=== PATIENT | female | born 1975 | race Two or more races ===

== ENCOUNTER 2016-10-14 11:16 | Inpatient (IN) | payer MEDICAID ==
[~2016-10-14] VITALS: Ht 154.9 cm; Wt 60.5 kg
[2016-10-14 13:59] LABS: DEFINITIVE VIEW TRANSMISSION; Hematocrit 21.9 % (36.0-46.0); Mean Corpuscular Hemoglobin 14.2 pg (28.0-32.0); Mean Corpuscular Hgb Conc. 28.2 g/dL (32.0-36.0); Mean Corpuscular Volume 50.4 fL (80.0-100.0); Mean Platelet Volume 7.9 fL (7.4-10.4); Platelet Count (auto) 547 10^3/uL (140-450); White Blood Cell 14.7 10^3/uL (4.4-10.8)
[2016-10-14 14:01] LABS: Red Cell Distribution Width 22.3 % (11.6-16.0)
[2016-10-14 14:03] LABS: Hemoglobin 6.2 g/dL (12.2-16.2)
[2016-10-14 14:04] LABS: Albumin 3.3 g/dL (3.4-5.0); Anion Gap 10 (5-15); Aspartate Aminotransferase 6 U/L (15-37); BUN/Creatinine Ratio 29.3; Blood Urea Nitrogen 12 mg/dL (7-18); Calcium 8.4 mg/dL (8.5-10.1); Carbon Dioxide 23 mmol/L (21-32); Chloride 108 mmol/L (98-107); GFR African American 219 mL/min; GFR Non-African American 181 mL/min; Glucose 111 mg/dL (74-106); Magnesium 2.2 mg/dL (1.6-2.6); Metamyelocytes % 0; Myelocytes % 0; Potassium 3.7 mmol/L (3.5-5.1); Promyelocytes % 0; Reactive Lymphocytes 0; Sodium 141 mmol/L (136-145)
[2016-10-14 14:11] LABS: Alkaline Phosphatase 79 U/L (45-117); Bilirubin, Total 0.3 mg/dL (0.2-1.0); Total Protein 7.5 g/dL (6.4-8.2)
[2016-10-14] MEDS ORDERED: traMADol HCL 50 MG TAB PO PRN (14:45)
[2016-10-14] MEDS ORDERED: VANCOMYCIN PER PHARMACY 0 MG IV SCH (14:45)
[2016-10-14] MEDS ORDERED: PANTOPRAZOLE SODIUM 40 MG/10 ML VIAL IV ONE (14:45)
[2016-10-14] MEDS ORDERED: ONDANSETRON HCL 4 MG/2 ML VIAL IV PRN (14:45)
[2016-10-14] MEDS ORDERED: NITROGLYCERIN 0.4 MG SL TAB SL PRN (14:45)
[2016-10-14] MEDS ORDERED: cefTRIAXone 1GM/50ML D5W 50 ML IV ONE (14:45)
[2016-10-14 14:57] LABS: Anisocytosis Marked; Hypochromia Marked; Microcytosis Marked; Ovalocytes FEW; Platelet Estimate Increased; Tear Drop Cells FEW
[2016-10-14] MEDS: predniSONE 5 MG TAB PO SCH (15:41)
[2016-10-14] MEDS ORDERED: FOLI1TAB6 PO (17:23)
[2016-10-14] MEDS ORDERED: NOR5T PO (17:23)
[2016-10-14] MEDS ORDERED: PRE1T PO (17:23)
[2016-10-14] MEDS ORDERED: TRAM50TA2 PO (17:23)
[2016-10-14] MEDS: VANCOMYCIN 1GM/250ML D5W 250 ML IV SCH (17:49)
[2016-10-14 18:20] VITALS: BP 119/67
[2016-10-14 20:00] VITALS: BP 125/83
[2016-10-14 21:30] VITALS: BP 125/83
[2016-10-14] MEDS: MORPHINE SULF INJ 2 MG/ML SYRINGE 1ML IV PRN (22:01)
[2016-10-15] VITALS (22 sets, daily range): BP systolic 103–134; BP diastolic 60–79
[2016-10-15] MEDS: MORPHINE SULF INJ 2 MG/ML SYRINGE 1ML IV PRN ×5 (01:14→21:13)
[2016-10-15] MEDS: VANCOMYCIN 1GM/250ML D5W 250 ML IV SCH ×2 (05:38→16:34)
[2016-10-15] MEDS: predniSONE 5 MG TAB PO SCH (08:26)
[2016-10-15] MEDS: cefTRIAXone 1GM/50ML D5W 50 ML IV SCH (08:26)
[2016-10-15 08:44] LABS: Urine RBC None Seen /hpf (0 - 4)
[2016-10-15 10:00] LABS: Urine Bilirubin Negative (Negative); Urine Blood Trace /uL (Negative); Urine Color Light Yellow (Yellow); Urine Glucose NEG (Normal); Urine Ketone Negative (Negative); Urine Nitrite Negative (Negative); Urine Urobilinogen Normal (Negative); Urine pH 6.5 (5.0-8.0)
[2016-10-15] MEDS ORDERED: PANTOPRAZOLE SODIUM 40 MG/10 ML VIAL IV SCH (10:00)
[2016-10-15 10:02] LABS: Urine Squamous Epithelial Cell Few /hpf (<5)
[2016-10-15 13:09] LABS: DEFINITIVE VIEW TRANSMISSION; Hematocrit 31.9 % (36.0-46.0); Hemoglobin 9.4 g/dL (12.2-16.2); Mean Corpuscular Hemoglobin 17.9 pg (28.0-32.0); Mean Corpuscular Hgb Conc. 29.6 g/dL (32.0-36.0); Mean Corpuscular Volume 60.6 fL (80.0-100.0); Mean Platelet Volume 8.1 fL (7.4-10.4); Platelet Count (auto) 453 10^3/uL (140-450); SUSPECT VIEW TRANSMISSION; White Blood Cell 12.7 10^3/uL (4.4-10.8)
[2016-10-15 13:17] LABS: Red Cell Distribution Width 37.3 % (11.6-16.0)
[2016-10-15 13:18] LABS: Metamyelocytes % 0; Myelocytes % 0; Promyelocytes % 0; Reactive Lymphocytes 0
[2016-10-15 13:23] LABS: INR 1.11 (0.9-1.15); Partial Thromboplastin Time 19.4 sec (22.64-33.71); Prothrombin Time 11.4 sec (9.37-12.3)
[2016-10-15 13:45] LABS: BUN/Creatinine Ratio 23.3; Calcium 8.1 mg/dL (8.5-10.1); Potassium 3.9 mmol/L (3.5-5.1)
[2016-10-15 14:42] LABS: Anisocytosis Marked; Hypochromia Marked; Microcytosis Marked
[2016-10-15] MEDS ORDERED: GOLYTELY 4L KIT PO ONE (14:45)
[2016-10-15 14:52] LABS: Burr Cells FEW; Ovalocytes FEW; Platelet Estimate Increased; Tear Drop Cells FEW
[2016-10-16] MEDS: MORPHINE SULF INJ 2 MG/ML SYRINGE 1ML IV PRN ×4 (04:21→20:58)
[2016-10-16 04:30] LABS: Basophils # (auto) 0 uL; Basophils % (auto) 0.2 % (0.0-2.0); DEFINITIVE VIEW TRANSMISSION; Eosinophils # (auto) 0.1 uL; Eosinophils % (auto) 1.6 % (0.0-7.0); Hematocrit 28.5 % (36.0-46.0); Hemoglobin 8.5 g/dL (12.2-16.2); Lymphocytes # (auto) 1.8 uL; Lymphocytes % (auto) 22.3 % (10.0-50.0); Mean Corpuscular Hemoglobin 17.9 pg (28.0-32.0); Mean Corpuscular Hgb Conc. 29.8 g/dL (32.0-36.0); Mean Platelet Volume 7.6 fL (7.4-10.4); Monocytes # (auto) 0.6 uL; Neutrophils # (auto) 5.7 uL; Neutrophils % (auto) 68.9 % (37.0-80.0); Platelet Count (auto) 390 10^3/uL (140-450); SUSPECT VIEW TRANSMISSION; White Blood Cell 8.2 10^3/uL (4.4-10.8)
[2016-10-16 04:43] LABS: Red Cell Distribution Width 36.4 % (11.6-16.0)
[2016-10-16 04:52] LABS: BUN/Creatinine Ratio 26.7; Calcium 7.6 mg/dL (8.5-10.1); Potassium 3.3 mmol/L (3.5-5.1)
[2016-10-16 05:06] LABS: Anisocytosis Marked; Hypersegmented Neutrophils Present; Hypochromia Marked; Microcytosis Marked; Ovalocytes MODERATE; Spherocytes FEW; Tear Drop Cells FEW
[2016-10-16 05:07] LABS: Platelet Estimate Adequate
[2016-10-16 05:14] VITALS: BP 123/75
[2016-10-16] MEDS: VANCOMYCIN 1GM/250ML D5W 250 ML IV SCH (05:20)
[2016-10-16 09:06] VITALS: BP 122/69
[2016-10-16] MEDS: predniSONE 5 MG TAB PO SCH ×2 (10:00→16:47)
[2016-10-16] MEDS: cefTRIAXone 1GM/50ML D5W 50 ML IV SCH (10:47)
[2016-10-16] MEDS ORDERED: POTASSIUM CHL 20 Meq TABLET PO ONE (11:15)
[2016-10-16] MEDS ORDERED: PANTOPRAZOLE SODIUM 40 MG/10 ML VIAL IV ONE (11:15)
[2016-10-16] MEDS ORDERED: PROPOFOL 10 MG/ML 20 ML IV ONE (12:15)
[2016-10-16 13:00] VITALS: BP 111/72
[2016-10-16] MEDS: VANCOMYCIN 1,250 MG in D5W 5% 250 ML IV SCH (16:49)
[2016-10-16] MEDS ORDERED: POTASSIUM CHL 10% (20 MEQ/15ML) ORAL SOLN PO ONE (17:00)
[2016-10-16 17:04] VITALS: BP 132/84
[2016-10-16 20:20] VITALS: BP 128/75
[2016-10-16 21:30] VITALS: BP 128/75
[2016-10-16] MEDS: PANTOPRAZOLE SODIUM 40 MG/10 ML VIAL IV SCH (21:52)
[2016-10-17] MEDS: MORPHINE SULF INJ 2 MG/ML SYRINGE 1ML IV PRN ×2 (02:35→09:52)
[2016-10-17] MEDS: VANCOMYCIN 1,250 MG in D5W 5% 250 ML IV SCH (04:41)
[2016-10-17 05:00] VITALS: BP 115/68
[2016-10-17 05:39] LABS: Hematocrit 30.3 % (36.0-46.0)
[2016-10-17 08:00] VITALS: BP 97/90
[2016-10-17 09:20] VITALS: BP 97/60
[2016-10-17] MEDS: cefTRIAXone 1GM/50ML D5W 50 ML IV SCH (09:30)
[2016-10-17] MEDS: PANTOPRAZOLE SODIUM 40 MG/10 ML VIAL IV SCH (09:51)
[2016-10-17] MEDS: predniSONE 5 MG TAB PO SCH (09:53)
[2016-10-17] MEDS ORDERED: PANTOPRAZOLE SODIUM 40 MG/10 ML VIAL IV SCH (10:00)
[2016-10-17] MEDS ORDERED: CEPH-37 PO (10:52)
[2016-10-17] MEDS ORDERED: PANT40TA2 PO (10:52)
[2016-10-17] MEDS ORDERED: SACC250C PO (10:52)
[2016-10-17] MEDS ORDERED: FER325T PO (10:52)
[2016-10-17 11:34] VITALS: BP 97/60
[2016-10-17 13:22] VITALS: BP 112/64
== END 2016-10-17 14:00 | disposition home health service (06) | DRG 663 ==
LOC: EDUNIT# 11:16 → ER 11:27 → TELE 11:28 → TELE-E-ADS 16:53 → TELE-WESTW 18:21
PROVIDERS: ADMIT Internal Medicine; ATTEND Internal Medicine
PROC: 30233N1 Transfusion of Nonautologous Red Blood Cells into Peripheral Vein, Percutaneous Approach (ICD-10-PCS; principal; 2016-10-14)
PROC: 0DJ08ZZ Inspection of Upper Intestinal Tract, Via Natural or Artificial Opening Endoscopic (ICD-10-PCS; 2016-10-16)
DX: D50.9 Iron deficiency anemia, unspecified (principal); L97.419 Non-pressure chronic ulcer of right heel and midfoot with unspecified severity; K92.2 Gastrointestinal hemorrhage, unspecified; M06.9 Rheumatoid arthritis, unspecified; F41.9 Anxiety disorder, unspecified; E87.6 Hypokalemia; Z79.52 Long term (current) use of systemic steroids; K44.9 Diaphragmatic hernia without obstruction or gangrene; Z87.442 Personal history of urinary calculi; M19.90 Unspecified osteoarthritis, unspecified site; Z87.01 Personal history of pneumonia (recurrent); Z96.653 Presence of artificial knee joint, bilateral; Z96.643 Presence of artificial hip joint, bilateral; Z71.89 Other specified counseling; Z53.21 Procedure and treatment not carried out due to patient leaving prior to being seen by health care provider
CPT/HCPCS: 36415; 36430; 43235; 71020; 80048; 80053; 80202; 81001; 83540; 83550; 83735; 84132; 84484; 84702; 85007; 85014; 85018; 85025; 85027; 85379; 85610; 85730; 86850; 86870; 86900; 86901; 86922; 87077; 87186; 87205; 93005; 94761; 96374; C9113; J0696; J2704; J7060

== ENCOUNTER 2019-06-16 20:03 | Emergency (ER) | payer MEDICAID ==
[~2019-06-16] VITALS: Ht 154.9 cm; Wt 74.8 kg
[~2019-06-16 20:03] MED LIST: CEPH-37 PO; FER325T PO; FOLI1TAB6 PO; HYDR-4833 PO; PANT40TA2 PO; PRE1T PO; SACC250C PO; TRAM50TA2 PO
[2019-06-16 21:09] LABS: Basophils # (auto) 0 uL; Eosinophils # (auto) 0 uL; Eosinophils % (auto) 0.1 % (0.0-7.0); Monocytes # (auto) 0.6 uL; Monocytes % (auto) 5.1 % (0.0-12.0); Neutrophils # (auto) 10.7 uL
[2019-06-16 21:11] LABS: Basophils % (auto) 0.4 % (0.0-2.0); Hematocrit 24.6 % (36.0-46.0); Lymphocytes # (auto) 0.6 uL; Lymphocytes % (auto) 4.8 % (10.0-50.0); Mean Corpuscular Hemoglobin 14.6 pg (28.0-32.0); Mean Corpuscular Hgb Conc. 27.2 g/dL (32.0-36.0); Mean Corpuscular Volume 53.8 fL (80.0-100.0); Neutrophils % (auto) 89.6 % (37.0-80.0); Nucleated Red Blood Cells % 0.1 %; Platelet Count (auto) 476 10^3/uL (140-450); Red Blood Cells 4.57 10^6/uL (4.0-5.20)
[2019-06-16 21:27] LABS: Alanine Aminotransferase 9 U/L (13-56); Albumin 3.8 g/dL (3.4-5.0); Anion Gap 7 (5-15); Aspartate Aminotransferase 10 U/L (15-37); BUN/Creatinine Ratio 17.1; Blood Urea Nitrogen 6 mg/dL (7-18); Calcium 8.4 mg/dL (8.5-10.1); Carbon Dioxide 25 mmol/L (21-32); Chloride 108 mmol/L (98-107); GFR African American 259 mL/min; GFR Non-African American 214 mL/min; Glucose 95 mg/dL (74-106); Potassium 3.5 mmol/L (3.5-5.1); Sodium 140 mmol/L (136-145)
[2019-06-16 21:32] LABS: Alkaline Phosphatase 89 U/L (45-117); Bilirubin, Total 0.4 mg/dL (0.2-1.0); Total Protein 7.5 g/dL (6.4-8.2)
[2019-06-16 21:36] LABS: Red Cell Distribution Width 21.1 % (11.8-14.3)
[2019-06-16 21:40] LABS: Hemoglobin 6.7 g/dL (12.2-16.2)
[2019-06-16 21:50] LABS: Urine Bacteria NONE SEEN /hpf (None Seen); Urine Blood Negative /uL (Negative); Urine Specific Gravity 1.008 (1.001-1.035); Urine WBC 6 /hpf (0 - 5)
[2019-06-17] MEDS ORDERED: LEVOFLOXACIN 750MG 150 ML IV ONE (00:15)
[2019-06-17] MEDS ORDERED: MORPHINE SULFATE 4 MG/ML SYR/VIAL IV ONE (04:15)
[2019-06-17] MEDS ORDERED: ONDANSETRON HCL 4 MG/2 ML VIAL IV ONE (04:15)
[2019-06-17 05:00] VITALS: BP 148/78
[2019-06-17 05:23] VITALS: BP 148/75
[2019-06-17 07:28] VITALS: BP 152/74
[2019-06-17 08:30] VITALS: BP 140/80
[2019-06-17 08:52] VITALS: BP 142/79
[2019-06-17 11:09] VITALS: BP 131/74
== END 2019-06-17 13:19 | disposition home or self-care (01) ==
LOC: ER 20:03
DX: J20.9 Acute bronchitis, unspecified (principal); D64.9 Anemia, unspecified; Z87.442 Personal history of urinary calculi
CPT/HCPCS: 36415; 71045; 80053; 81001; 83880; 84484; 85025; 86850; 86870; 86900; 86901; 86902; 96365; 96375; 99284; J1956; J2270; J2405; P9016; 86922

== ENCOUNTER 2019-09-03 18:32 | Emergency (ER) | payer MEDICAID ==
[~2019-09-03] VITALS: Ht 134.6 cm; Wt 71.7 kg
[2019-09-03 19:01] VITALS: BP 152/96
[2019-09-04] MEDS ORDERED: DexAMETHasone SOD PHOS 10MG/1ML VIAL INJ IM ONE (00:15)
[2019-09-04] MEDS ORDERED: ACETAMINOPHEN/CODEINE#3 (300/30mg) TAB PO ONE (00:15)
== END 2019-09-04 01:27 | disposition home or self-care (01) ==
LOC: ER 18:32
DX: J06.9 Acute upper respiratory infection, unspecified (principal)
CPT/HCPCS: 96372; 99283; J1100

== ENCOUNTER 2020-03-11 21:30 | Inpatient (IN) | payer MEDICAID ==
[~2020-03-11] VITALS: Ht 147.3 cm; Wt 47.8 kg
[2020-03-11 23:51] LABS: Potassium 4.6 mmol/L (3.5-5.1)
[2020-03-11 23:55] LABS: Basophils # (auto) 0 10 ^3/uL (0-0.2); Basophils % (auto) 0.1 % (0.0-2.0); Eosinophils # (auto) 0 10 ^3/uL (0-0.8)
[2020-03-11 23:57] LABS: Hematocrit 38.6 % (36.0-46.0); Hemoglobin 11.8 g/dL (12.2-16.2); Lymphocytes # (auto) 0.8 10 ^3/uL (0.4-5.4); Mean Corpuscular Hemoglobin 22.7 pg (28.0-32.0); Mean Corpuscular Hgb Conc. 30.6 g/dL (32.0-36.0); Mean Corpuscular Volume 74.1 fL (80.0-100.0); Monocytes # (auto) 0.7 10 ^3/uL (0-1.3); Monocytes % (auto) 5.7 % (0.0-12.0); Neutrophils # (auto) 11.5 10 ^3/uL (1.6-8.6); Neutrophils % (auto) 88.2 % (37.0-80.0); Nucleated Red Blood Cells % 0.2 %; Platelet Count (auto) 358 10^3/uL (140-450); Red Blood Cells 5.21 10^6/uL (4.0-5.20)
[2020-03-11 23:58] LABS: BUN/Creatinine Ratio 14.3; Bilirubin, Total 0.3 mg/dL (0.2-1.0); Total Protein 7.6 g/dL (6.4-8.2)
[2020-03-12 00:03] LABS: Red Cell Distribution Width 20.6 % (11.8-14.3)
[2020-03-12] MEDS ORDERED: IOHEXOL 300 MG/ML 100ML BOTTLE IJ ONE (00:36)
[2020-03-12] MEDS ORDERED: SOD CHL 0.45% 1,000 ML IV ONE (00:45)
[2020-03-12] MEDS ORDERED: cefTRIAXone 1GM/50ML D5W 50 ML IV ONE (00:45)
[2020-03-12 02:12] LABS: Urine Bacteria NONE SEEN /hpf (None Seen); Urine Blood Negative /uL (Negative); Urine Mucus FEW (None Seen); Urine WBC 4 /hpf (0 - 5)
[2020-03-12 02:15] LABS: Amylase 28 U/L (25-115); Lipase 142 U/L (73-393)
[2020-03-12 02:16] LABS: Basophils # (auto) 0 10 ^3/uL (0-0.2); Basophils % (auto) 0.3 % (0.0-2.0); Eosinophils # (auto) 0 10 ^3/uL (0-0.8); Monocytes # (auto) 0.6 10 ^3/uL (0-1.3); Monocytes % (auto) 4.9 % (0.0-12.0)
[2020-03-12 02:17] LABS: Alcohol, Urine < 3.0 mg/dL (0-10); Amphetamine Screen, Urine NEGATIVE (NEGATIVE); Barbiturate Scree,Urine NEGATIVE (NEGATIVE); Benzodiazephine Screen, Urine NEGATIVE (NEGATIVE); Cannabinoid Screen, Urine NEGATIVE (NEGATIVE); Cocaine Screen, Urine NEGATIVE (NEGATIVE); Opiate Scree,Urine NEGATIVE (NEGATIVE); Phencyclidine Screen, Urine NEGATIVE (NEGATIVE)
[2020-03-12 02:17] LABS: Hematocrit 37.5 % (36.0-46.0); Hemoglobin 11.6 g/dL (12.2-16.2); Lymphocytes # (auto) 0.9 10 ^3/uL (0.4-5.4); Lymphocytes % (auto) 7.4 % (10.0-50.0); Mean Corpuscular Volume 74.2 fL (80.0-100.0); Neutrophils # (auto) 11.1 10 ^3/uL (1.6-8.6); Neutrophils % (auto) 87.4 % (37.0-80.0); Platelet Count (auto) 339 10^3/uL (140-450); Red Blood Cells 5.05 10^6/uL (4.0-5.20); White Blood Cell 12.7 10^3/uL (4.4-10.8)
[2020-03-12 02:18] LABS: Urine Specific Gravity > 1.050 (1.001-1.035)
[2020-03-12 02:18] LABS: Red Cell Distribution Width 20.5 % (11.8-14.3)
[2020-03-12 02:38] LABS: Alanine Aminotransferase 25 U/L (13-56); Albumin 2.9 g/dL (3.4-5.0); Anion Gap 8 (5-15); Aspartate Aminotransferase 21 U/L (15-37); BUN/Creatinine Ratio 15.4; Blood Urea Nitrogen 6 mg/dL (7-18); Calcium 7.8 mg/dL (8.5-10.1); Carbon Dioxide 23 mmol/L (21-32); Chloride 104 mmol/L (98-107); GFR African American 228 mL/min; GFR Non-African American 188 mL/min; Glucose 92 mg/dL (74-106); Potassium 3.6 mmol/L (3.5-5.1); Sodium 135 mmol/L (136-145)
[2020-03-12 02:41] LABS: Alkaline Phosphatase 116 U/L (45-117); Bilirubin, Total 0.4 mg/dL (0.2-1.0); Total Protein 7.6 g/dL (6.4-8.2)
[2020-03-12] MEDS ORDERED: AZITHROMYCIN 500MG/ 250ML 250 ML IV ONE (03:00)
[2020-03-12] MEDS: traMADol HCL 50 MG TAB PO ONE ×2 (04:19→04:27)
[2020-03-12] MEDS ORDERED: TEMAZEPAM 15 MG CAP PO ONE (05:15)
[2020-03-12] MEDS ORDERED: PIPERACILLIN-TAZOB 3.375GM 100 ML IV ONE (09:45)
[2020-03-12] MEDS ORDERED: NITROGLYCERIN 0.4 MG SL TAB SL PRN (09:45)
[2020-03-12] MEDS ORDERED: ACETAMINOPHEN 500 MG TAB PO PRN ×2 (09:45→10:00)
[2020-03-12] MEDS ORDERED: VANCOMYCIN PER PHARMACY 0 MG IV SCH (09:45)
[2020-03-12] MEDS ORDERED: MORPHINE SULF INJ 2 MG/ML SYRINGE 1ML IV PRN (09:45)
[2020-03-12] MEDS ORDERED: VANCOMYCIN 1GM/250ML 250 ML IV ONE (09:45)
[2020-03-12] MEDS ORDERED: SODIUM CHLORIDE 0.9% 1,000 ML IV SCH (09:49)
[2020-03-12] MEDS ORDERED: VANCOMYCIN 1GM/250ML 250 ML IV SCH ×2 (10:00→11:00)
[2020-03-12] MEDS ORDERED: DexAMETHasone SOD PHOS 4 MG/1ML SDV INJ IV SCH (10:00)
[2020-03-12] MEDS ORDERED: LACTULOSE 20Gm/30ML SOLN PO PRN (10:00)
[2020-03-12] MEDS: FERROUS SULFATE 325 MG TAB PO SCH (10:37)
[2020-03-12] MEDS: ZINC SULFATE 220mg CAP or TAB PO SCH (10:37)
[2020-03-12] MEDS: FOLIC ACID 1 MG TAB PO SCH ×2 (10:37→11:16)
[2020-03-12] MEDS: CHOLECALCIFEROL (VITD3) 1,000UNIT=25mCg TAB PO SCH (10:37)
[2020-03-12] MEDS: DOXYCYCLINE 100 MG TAB/CAP PO SCH ×2 (10:38→22:04)
[2020-03-12] MEDS: ASCORBIC ACID 1,000 MG TAB PO SCH ×2 (10:38→11:16)
[2020-03-12] MEDS: ENOXAPARIN SOD 60 MG/0.6 ML SYRINGE SC SCH ×2 (10:38→22:00)
[2020-03-12] MEDS: SODIUM CHLORIDE 0.9% 1,000 ML IV SCH (11:18)
[2020-03-12] MEDS: PROMETHAZINE HCL 25 MG/ML 1ML IV PRN ×2 (11:54→17:14)
[2020-03-12] MEDS: PIPERACILLIN-TAZOB 3.375GM 100 ML IV SCH ×2 (13:18→18:30)
[2020-03-12] MEDS ORDERED: ALBUTEROL SULF HFA 90MCG INH 200DOSE IN SCH (14:00)
--- NOTE | 2020-03-12 16:00 | NUR ---
WOUND CARE NOTE: Wound care in to see patient per wound care request regarding Rt lower leg wounds that are noted present on admission. Patient is 44 years old female with admitting diagnosis of Pna, Covid, Rt Leg Cellulitis, Non healing Wound. Patient is resting in ED Rm. #1, on isolation, CoVid positive. Patient is awake, alert and oriented. Patient is in no stated pain at this time. Patient is wheel chair bound "for many years" but she's able to assist in turning and repositioning. Her Fareed score is 15. Noted patient's Rt lower extremity has multi open full thickness ulceration. To her Rt anterior medial foot down to her Rt lateral ankle is 9x13 open ulceration and to her Rt anterolateral lower leg is 6x5cm open full thickness ulcer with no measurable depth. Wound bed is pale pink with yellow adherent slough, lanre wound is bright red with moderate serous drainage noted on old dressing; no odor noted. Patient reported that she has had the RLE wounds "for three weeks". She added that she goes to [facility] [place] for wound treatment and it is her son who helps her in wound dressing. Cleansed patient's RLE wounds with NS, took specimen for wound culture and bedside nurse sent it to lab for processing. Applied Xeroform dressing and covered with large abd pad, wrapped with Kerlix and secured with tape. Patient's Rt distal forearm has open partial thickness skin tear measuring 0.5x1.8cm. Cleansed skin tear with wound cleanser,patted dry with gauze, applied Thera honey and covered with small Opti foam gentle dressing. Patient turned to her Rt side to examine sacral and back, no pressure injury noted. Photograph of wounds are taken for reference. Patient tolerated, repositioned patient for comfort. RECOMMENDATION: Nursing to continue with Daily/PRN dressing change to RLE wounds, Q#days/PRN dressing change to Rt forearm skin tear per MD order, Dietary consult, surgical consult, frequent turning and repositioning schedule as condition permits, redistribute pressure points with pillows, affected extremity on pillows, continue monitoring by wound care while patient is hospitalized. Addendum: 03/12/20 at 1713 by Gwendolyn Bridges RN Amended: Links added.
[2020-03-12] MEDS: MORPHINE SULF INJ 2 MG/ML SYRINGE 1ML IV PRN ×2 (17:13→22:04)
[2020-03-12 21:30] VITALS: BP 131/75
--- NOTE | 2020-03-12 21:30 | NUR ---
Telemetry admit from [facility] admitted to Telemetry unit after SBAR received. Patient oriented to LALA RUTHERFORD, RN primary RN, MST unit, room 245, bed B, and unit policies regarding patient care and visiting hours. Patient now on continuous telemetry monitoring, tele box #20 and telemetry reading on arrival to unit is normal SR in the 80s. Patient weighed by bed scale and encouraged to call if they need something. All questions and concerns addressed, patient verbalized understanding. Note: PATIENT ON ROOM AIR WITH EVEN AND UNLABORED RESPIRATIONS, NO S/S OF DISTRESS SOB OR PAIN. BED IN LOWEST LOCKED POSITION, SIDE RAILS UP X2, AND CALL LIGHT WITHIN REACH.
[2020-03-12] MEDS: VANCOMYCIN 1GM/250ML 250 ML IV SCH (22:04)
[2020-03-12] MEDS: TEMAZEPAM 15 MG CAP PO PRN (22:40)
[2020-03-13] MEDS: PIPERACILLIN-TAZOB 3.375GM 100 ML IV SCH ×4 (00:46→19:59)
[2020-03-13] MEDS: SODIUM CHLORIDE 0.9% 1,000 ML IV SCH (00:46)
[2020-03-13] MEDS: MORPHINE SULF INJ 2 MG/ML SYRINGE 1ML IV PRN ×4 (02:35→22:14)
[2020-03-13 05:00] VITALS: BP 135/71
[2020-03-13 07:19] LABS: Basophils # (auto) 0 10 ^3/uL (0-0.2); Eosinophils # (auto) 0 10 ^3/uL (0-0.8); Eosinophils % (auto) 0.1 % (0.0-7.0); Hemoglobin 10.3 g/dL (12.2-16.2); Lymphocytes # (auto) 0.7 10 ^3/uL (0.4-5.4)
[2020-03-13] MEDS: VANCOMYCIN 1GM/250ML 250 ML IV SCH ×2 (07:20→18:50)
[2020-03-13 07:21] LABS: Hematocrit 32.9 % (36.0-46.0); Lymphocytes % (auto) 7.3 % (10.0-50.0); Mean Corpuscular Hemoglobin 23.2 pg (28.0-32.0); Mean Corpuscular Hgb Conc. 31.4 g/dL (32.0-36.0); Monocytes # (auto) 0.6 10 ^3/uL (0-1.3); Monocytes % (auto) 7.1 % (0.0-12.0); Neutrophils # (auto) 7.8 10 ^3/uL (1.6-8.6); Neutrophils % (auto) 85.5 % (37.0-80.0); Platelet Count (auto) 273 10^3/uL (140-450); Red Blood Cells 4.45 10^6/uL (4.0-5.20); Red Cell Distribution Width 20.3 % (11.8-14.3); White Blood Cell 9.1 10^3/uL (4.4-10.8)
[2020-03-13 07:37] LABS: Potassium 3.2 mmol/L (3.5-5.1)
[2020-03-13 07:45] LABS: Albumin 2.3 g/dL (3.4-5.0); BUN/Creatinine Ratio 23.5; Bilirubin, Total 0.3 mg/dL (0.2-1.0); Calcium 8.2 mg/dL (8.5-10.1); Total Protein 6.3 g/dL (6.4-8.2)
[2020-03-13 09:00] VITALS: BP 119/65
[2020-03-13] MEDS: CHOLECALCIFEROL (VITD3) 1,000UNIT=25mCg TAB PO SCH (10:00)
[2020-03-13] MEDS: FERROUS SULFATE 325 MG TAB PO SCH (10:30)
[2020-03-13] MEDS: ZINC SULFATE 220mg CAP or TAB PO SCH (10:30)
[2020-03-13] MEDS: ASCORBIC ACID 1,000 MG TAB PO SCH (10:31)
[2020-03-13] MEDS: DOXYCYCLINE 100 MG TAB/CAP PO SCH ×2 (10:31→22:13)
[2020-03-13] MEDS: FOLIC ACID 1 MG TAB PO SCH (10:31)
[2020-03-13] MEDS: ENOXAPARIN SOD 60 MG/0.6 ML SYRINGE SC SCH (10:32)
[2020-03-13] MEDS: PROMETHAZINE HCL 25 MG/ML 1ML IV PRN ×3 (10:54→22:14)
[2020-03-13] MEDS: HYDROcodone-ACET 5/325MG TAB PO PRN ×2 (10:55→17:41)
[2020-03-13] MEDS: DexAMETHasone SOD PHOS 10MG/1ML VIAL INJ IV SCH (10:56)
[2020-03-13 13:00] VITALS: BP 113/61
[2020-03-13] MEDS ORDERED: FUROSEMIDE 40 MG/4 ML VIAL IV ONE (14:30)
[2020-03-13] MEDS ORDERED: POTASSIUM EFFERVESENT TAB 25 MEQ PO ONE (14:30)
--- NOTE | 2020-03-13 14:32 | NUR ---
RE: PRN pain medication administration PRN pain medication administered to patient for patient's primary RNYenifer.
[2020-03-13] MEDS ORDERED: ENOXAPARIN SOD 80 MG/0.8ML SYRINGE SC ONE (14:45)
--- NOTE | 2020-03-13 15:08 | NUR ---
Nutrition Assessment/consult Notes please see attached link for complete assessment [employer] needs ABW 57 [id number] kcals (23-25 kcal/kgABW), Est Protein needs: 57-68 gms/day (1.0-1.2 gm/kgABW r/t wounds). Will continue to monitor and reassess prn. Addendum: 03/13/20 at [address] Amended: Links added.
[2020-03-13 17:45] VITALS: BP 104/71
--- NOTE | 2020-03-13 19:10 | NUR ---
Opening Shift Note Assumed care of patient, awake, and alert oriented x4, on room air with even and unlabored respirations, no S/S of distress/SOB or pain. Patient able to turn independently, bed in lowest locked position, side rails up x2, and call light within reach. Instructed on POC and to call for assist PRN, will continue to monitor for changes Q1hr and PRN.
[2020-03-13 22:00] VITALS: BP 117/69
[2020-03-13] MEDS: ENOXAPARIN SOD 80 MG/0.8ML SYRINGE SC SCH (22:13)
[2020-03-14] MEDS: TEMAZEPAM 15 MG CAP PO PRN ×2 (00:34→22:59)
[2020-03-14] MEDS: HYDROcodone-ACET 5/325MG TAB PO PRN ×2 (01:46→14:23)
--- NOTE | 2020-03-14 02:45 | NUR ---
IV removal IV DC'd with clean sterile technique, catheter fully intact. Pressure dressing applied to site. Patient tolerated well.
--- NOTE | 2020-03-14 02:54 | NUR ---
IV insertion IV access obtained, via clean sterile technique by inserting 22 gauge catheter at the right forearm after 1 attempt(s). IV secured properly. No trauma to site. Patient tolerated well.
[2020-03-14] MEDS: VANCOMYCIN 1GM/250ML 250 ML IV SCH ×3 (03:05→22:59)
[2020-03-14] MEDS: PIPERACILLIN-TAZOB 3.375GM 100 ML IV SCH ×4 (03:05→19:57)
[2020-03-14] MEDS: MORPHINE SULF INJ 2 MG/ML SYRINGE 1ML IV PRN ×4 (03:06→21:54)
[2020-03-14 06:00] VITALS: BP 109/58
--- NOTE | 2020-03-14 07:00 | NUR ---
Opening Shift Note Assumed care of patient, awake and alert. No S/S of distress/SOB or pain. Instructed on POC and to call for assist PRN, will continue to monitor for changes Q1hr and PRN.
[2020-03-14 09:00] VITALS: BP 140/77
[2020-03-14] MEDS: FUROSEMIDE 40 MG/4 ML VIAL IV SCH (09:00)
[2020-03-14] MEDS: PROMETHAZINE HCL 25 MG/ML 1ML IV PRN ×3 (09:00→21:55)
[2020-03-14] MEDS: DexAMETHasone SOD PHOS 10MG/1ML VIAL INJ IV SCH (09:00)
[2020-03-14] MEDS: FERROUS SULFATE 325 MG TAB PO SCH (09:00)
[2020-03-14] MEDS: POTASSIUM EFFERVESENT TAB 25 MEQ PO SCH (09:01)
[2020-03-14] MEDS: ASCORBIC ACID 1,000 MG TAB PO SCH (09:01)
[2020-03-14] MEDS: DOXYCYCLINE 100 MG TAB/CAP PO SCH ×2 (09:01→21:53)
[2020-03-14] MEDS: ZINC SULFATE 220mg CAP or TAB PO SCH (09:02)
[2020-03-14] MEDS: ENOXAPARIN SOD 80 MG/0.8ML SYRINGE SC SCH ×3 (09:02→22:59)
[2020-03-14] MEDS: FOLIC ACID 1 MG TAB PO SCH (09:02)
[2020-03-14] MEDS: CHOLECALCIFEROL (VITD3) 1,000UNIT=25mCg TAB PO SCH (09:02)
[2020-03-14 13:00] VITALS: BP 122/68
--- NOTE | 2020-03-14 14:45 | NUR ---
O2 TITRATION PLACED PATIENT ON 2 L N/C PATIENTS O2 SATURATION IS 94% NO S/S OF DISTRESS. Addendum: 03/14/20 at 1500 by Caitlin Castle RN WRONG PATIENT
[2020-03-14 17:00] VITALS: BP 118/69
--- NOTE | 2020-03-14 17:36 | NUR ---
Dressing change Patient refusing dressing change until we can get an order to use her gel that has lidocaine. Will ask for order in the am. Addendum: 03/14/20 at 1742 by Caitlin Castle RN Dressing is clean dry and intact, no drainage.
--- NOTE | 2020-03-14 19:30 | NUR ---
Opening Shift Note Assumed care of patient. Patient is awake, alert, and oriented x 4. No S/S of respiratory distress/SOB noted or reported. Patient complaints on ashley in R. leg 5 out of 10. Will be addressed per DR's order. Respirations are regular and non-labored. Tele box connected to the monitor tech. Leads are placed correctly. [employer]ina is patent. Bed is in lowest locked position with bed rails up x 2, call light is within reach. POC discussed with the patient. Instructed to call for assistance PRN. Will continue to monitor Q1H or/and PRN.
[2020-03-14 20:00] VITALS: BP 101/62
[2020-03-14 22:00] VITALS: BP 101/62
[2020-03-15] MEDS: PIPERACILLIN-TAZOB 3.375GM 100 ML IV SCH ×4 (02:01→20:27)
[2020-03-15] MEDS: MORPHINE SULF INJ 2 MG/ML SYRINGE 1ML IV PRN ×4 (03:36→22:09)
[2020-03-15] MEDS: PROMETHAZINE HCL 25 MG/ML 1ML IV PRN ×2 (03:36→09:15)
[2020-03-15 05:00] VITALS: BP 113/58
[2020-03-15 07:02] LABS: Basophils # (auto) 0 10 ^3/uL (0-0.2); Eosinophils # (auto) 0 10 ^3/uL (0-0.8); Eosinophils % (auto) 0.1 % (0.0-7.0); Lymphocytes # (auto) 0.8 10 ^3/uL (0.4-5.4); Monocytes # (auto) 0.8 10 ^3/uL (0-1.3); Neutrophils % (auto) 82.9 % (37.0-80.0)
[2020-03-15 07:04] LABS: Hemoglobin 10.2 g/dL (12.2-16.2); Lymphocytes % (auto) 8.7 % (10.0-50.0); Mean Corpuscular Hemoglobin 22.9 pg (28.0-32.0); Mean Corpuscular Hgb Conc. 30.9 g/dL (32.0-36.0); Monocytes % (auto) 8.3 % (0.0-12.0); Neutrophils # (auto) 7.7 10 ^3/uL (1.6-8.6); Platelet Count (auto) 286 10^3/uL (140-450); Red Blood Cells 4.46 10^6/uL (4.0-5.20); White Blood Cell 9.3 10^3/uL (4.4-10.8)
[2020-03-15 07:16] LABS: Red Cell Distribution Width 20.6 % (11.8-14.3)
--- NOTE | 2020-03-15 07:22 | NUR ---
Respiratory note: POX CHECK, ASSESSED PT NO DISTRESS NOTED. HR 67, RR 16, SPO2 94% ON ROOM AIR. BS ARE CLEAR AND DIMINISHED.
[2020-03-15 07:28] LABS: Potassium 3.4 mmol/L (3.5-5.1)
[2020-03-15 07:30] LABS: BUN/Creatinine Ratio 22.5
[2020-03-15] MEDS: VANCOMYCIN 1GM/250ML 250 ML IV SCH ×2 (08:45→19:05)
[2020-03-15] MEDS: FUROSEMIDE 40 MG/4 ML VIAL IV SCH (08:48)
[2020-03-15] MEDS: DOXYCYCLINE 100 MG TAB/CAP PO SCH ×2 (08:48→22:08)
[2020-03-15] MEDS: ZINC SULFATE 220mg CAP or TAB PO SCH (08:48)
[2020-03-15] MEDS: FOLIC ACID 1 MG TAB PO SCH (08:48)
[2020-03-15] MEDS: FERROUS SULFATE 325 MG TAB PO SCH (08:48)
[2020-03-15] MEDS: ASCORBIC ACID 1,000 MG TAB PO SCH (08:48)
[2020-03-15] MEDS: DexAMETHasone SOD PHOS 10MG/1ML VIAL INJ IV SCH (08:48)
[2020-03-15] MEDS: CHOLECALCIFEROL (VITD3) 1,000UNIT=25mCg TAB PO SCH (08:49)
[2020-03-15] MEDS: POTASSIUM EFFERVESENT TAB 25 MEQ PO SCH (08:49)
[2020-03-15 09:00] VITALS: BP 109/56
[2020-03-15] MEDS: ENOXAPARIN SOD 80 MG/0.8ML SYRINGE SC SCH ×2 (10:00→22:07)
[2020-03-15 13:00] VITALS: BP 114/69
[2020-03-15] MEDS: HYDROcodone-ACET 5/325MG TAB PO PRN ×2 (13:13→23:45)
[2020-03-15 17:00] VITALS: BP 118/66
--- NOTE | 2020-03-15 19:45 | NUR ---
Opening Shift Note Assumed care of patient, awake and alert. No S/S of distress/SOB or pain noted. Instructed on POC and to call for assist PRN. Bed is in lowest locked position with bed rails up x2 and call light is within reach of the patient.
[2020-03-15 22:00] VITALS: BP 126/61
[2020-03-15] MEDS: CLINDAMYCIN 300MG IV 50 ML IV SCH (22:08)
[2020-03-16] MEDS: PROMETHAZINE HCL 25 MG/ML 1ML IV PRN ×2 (00:57→10:28)
[2020-03-16] MEDS: MORPHINE SULF INJ 2 MG/ML SYRINGE 1ML IV PRN ×2 (02:18→06:26)
[2020-03-16 05:00] VITALS: BP 108/50
[2020-03-16] MEDS: CLINDAMYCIN 300MG IV 50 ML IV SCH ×2 (05:30→14:00)
[2020-03-16 06:08] LABS: Basophils # (auto) 0 10 ^3/uL (0-0.2); Basophils % (auto) 0.2 % (0.0-2.0); Eosinophils # (auto) 0 10 ^3/uL (0-0.8); Lymphocytes # (auto) 0.9 10 ^3/uL (0.4-5.4); Monocytes # (auto) 0.7 10 ^3/uL (0-1.3); Monocytes % (auto) 7.1 % (0.0-12.0); Platelet Count (auto) 311 10^3/uL (140-450)
[2020-03-16 06:10] LABS: Eosinophils % (auto) 0.1 % (0.0-7.0); Hematocrit 33.9 % (36.0-46.0); Hemoglobin 10.4 g/dL (12.2-16.2); Lymphocytes % (auto) 8.6 % (10.0-50.0); Mean Corpuscular Hgb Conc. 30.7 g/dL (32.0-36.0); Mean Corpuscular Volume 74.9 fL (80.0-100.0); Neutrophils # (auto) 8.7 10 ^3/uL (1.6-8.6); Red Blood Cells 4.53 10^6/uL (4.0-5.20); White Blood Cell 10.4 10^3/uL (4.4-10.8)
[2020-03-16 06:16] LABS: Red Cell Distribution Width 20.6 % (11.8-14.3)
[2020-03-16 06:33] LABS: Calcium 8.3 mg/dL (8.5-10.1)
[2020-03-16 06:39] LABS: Albumin 2.3 g/dL (3.4-5.0); BUN/Creatinine Ratio 24.2; Bilirubin, Total 0.3 mg/dL (0.2-1.0); Total Protein 6.6 g/dL (6.4-8.2)
[2020-03-16 06:59] LABS: Potassium 3.5 mmol/L (3.5-5.1)
[2020-03-16 09:00] VITALS: BP 115/65
[2020-03-16] MEDS: DexAMETHasone SOD PHOS 10MG/1ML VIAL INJ IV SCH (10:01)
[2020-03-16] MEDS: DOXYCYCLINE 100 MG TAB/CAP PO SCH (10:02)
[2020-03-16] MEDS: FERROUS SULFATE 325 MG TAB PO SCH (10:02)
[2020-03-16] MEDS: ASCORBIC ACID 1,000 MG TAB PO SCH (10:02)
[2020-03-16] MEDS: FOLIC ACID 1 MG TAB PO SCH (10:02)
[2020-03-16] MEDS: ZINC SULFATE 220mg CAP or TAB PO SCH (10:02)
[2020-03-16] MEDS: POTASSIUM EFFERVESENT TAB 25 MEQ PO SCH (10:02)
[2020-03-16] MEDS: CHOLECALCIFEROL (VITD3) 1,000UNIT=25mCg TAB PO SCH (10:02)
[2020-03-16] MEDS: FUROSEMIDE 40 MG/4 ML VIAL IV SCH (10:03)
[2020-03-16] MEDS: ENOXAPARIN SOD 80 MG/0.8ML SYRINGE SC SCH (10:03)
[2020-03-16] MEDS ORDERED: DOX100T PO (10:55)
[2020-03-16] MEDS ORDERED: CLIN300C8 PO (10:56)
[2020-03-16] MEDS ORDERED: CHOL1000 PO (10:57)
[2020-03-16] MEDS ORDERED: FER325T PO (10:59)
[2020-03-16] MEDS ORDERED: DEX4T PO (11:00)
[2020-03-16] MEDS ORDERED: APIX5TAB PO (11:03)
--- NOTE | 2020-03-16 12:20 | NUR ---
ROUNDING MD CID AT BEDSIDE. ALL QUESTIONS AND CONCERNS ADDRESSED AT THIS TIME. PATIENT VERBALIZED UNDERSTANDING
--- NOTE | 2020-03-16 12:30 | NUR ---
Wu catheter dc'd Order to discontinue wu catheter. Wu dc'd with clean technique following deflation of balloon. Patient tolerated well with no complaints of pain. Continue care.
[2020-03-16 13:00] VITALS: BP 130/75
[2020-03-16 13:16] VITALS: BP 115/65
--- NOTE | 2020-03-16 14:35 | NUR ---
Discharge instructions given as ordered. Encourage to follow up with PMD as instructed. All questions and concerns addressed. Patient verbalized understanding. Medication reconciliation form completed and copy given to patient. . IV removed with catheter intact, pressure dressing applied, wu catheter removed. Telemetry unit returned to ICU. Patient taken to vehicle via wheelchair with all personal belongings, accompanied by staff and family member. No distress noted at time of departure. 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 PT ON PERSONAL SCOOTER WITH NO S/S OF DISTRESS
--- NOTE | 2020-03-16 15:11 | NUR ---
assessment Patient is a 44 year old female who is Upper Sorbian speaking. Aryan translated. Patient is Covid positive. Prior to admission patient lived home with family and needed assistance. Patient has a scooter and fww for home use. Patients PCP is Dr Haywood. Patient has good family support. Patient will be assessed for oxygen needs prior to discharge. Right now patient is on room air. Patient verbalized understanding and agreed to discharge plan home. Addendum: 03/16/20 at 1515 by Ann HORVATH Amended: Links added.
--- NOTE | 2020-03-16 16:39 | NUR ---
Nutrition Followup Notes Pt wt is 47.8 kg Pt is positive for COVID. Pt is with a 2g Sodium diet, appetite is fair aeb 50% PO intake over 4 meals per RN doc. Pt with no distress per RN doc. Will continue to monitor PO status, skin status, pertinent labs and weight trends. Will f/u in 3-5 days. Est [employer] needs ABW 57 [id number] kcals (23-25 kcal/kgABW), Est Protein needs: 57-68 gms/day (1.0-1.2 gm/kgABW r/t wounds). Will continue to monitor and reassess prn. LABS: BUN 24 H, CA 8.3 L, ALB 2.3 L GI: Pt had 1 BM on 03/16 per RN doc BS: 13 mod risk. Refer to wound assessment report for full details. PES: Altered nutrition related lab values r.t current chronic medical conidtion aeb hyeprglcyemia mod hypoalb Decreased nutrient needs r/t adiposity aeb pt`s high BMIof 32.6 kgm2 Comments 1) refer to OPD dietitan on DC 2) continue current plan of care
== END 2020-03-16 14:35 | disposition home or self-care (01) | DRG 720 ==
LOC: ER 21:32 → TELE 21:33 → TELE-EAST 03-12 23:51 → TELE-E-ADS 03-16 02:27
PROVIDERS: ADMIT Internal Medicine; ATTEND Internal Medicine Nephrology
DX: A41.89 Other specified sepsis (principal); U07.1 COVID-19; J12.89 Other viral pneumonia; C41.0 Malignant neoplasm of bones of skull and face; L03.115 Cellulitis of right lower limb; E03.9 Hypothyroidism, unspecified; M06.9 Rheumatoid arthritis, unspecified; Z99.3 Dependence on wheelchair; S81.801A Unspecified open wound, right lower leg, initial encounter; N10 Acute pyelonephritis; N20.0 Calculus of kidney; K21.9 Gastro-esophageal reflux disease without esophagitis; F41.9 Anxiety disorder, unspecified; E66.9 Obesity, unspecified; R73.9 Hyperglycemia, unspecified; I10 Essential (primary) hypertension; B95.62 Methicillin resistant Staphylococcus aureus infection as the cause of diseases classified elsewhere; G89.29 Other chronic pain; Z78.9 Other specified health status; Z87.442 Personal history of urinary calculi; Z83.3 Family history of diabetes mellitus; Z86.718 Personal history of other venous thrombosis and embolism; Z96.643 Presence of artificial hip joint, bilateral; Z68.32 Body mass index [BMI] 32.0-32.9, adult
CPT/HCPCS: 36415; 51702; 70450; 71045; 72125; 72170; 74177; 76775; 80048; 80053; 80202; 80307; 81001; 82150; 83605; 83690; 83880; 84484; 84702; 85025; 86141; 87077; 87186; 87205; 96365; 96366; 96367; 96368; 96372; 96375; G0378; J0696; J1100; J2543; J3490

== ENCOUNTER 2020-03-18 20:33 | Emergency (ER) | payer MEDICAID ==
[~2020-03-18] VITALS: Ht 152.4 cm; Wt 65.8 kg
[~2020-03-18 20:33] MED LIST changes: +APIX5TAB PO; +CHOL1000 PO; +CLIN300C8 PO; +DEX4T PO; +DOX100T PO
[2020-03-18 20:35] VITALS: BP 133/82
[2020-03-18 21:27] LABS: Basophils # (auto) 0 10 ^3/uL (0-0.2); Eosinophils # (auto) 0 10 ^3/uL (0-0.8); Lymphocytes # (auto) 0.2 10 ^3/uL (0.4-5.4)
[2020-03-18 21:29] LABS: Basophils % (auto) 0.2 % (0.0-2.0); Hematocrit 36.6 % (36.0-46.0); Hemoglobin 11.2 g/dL (12.2-16.2); Lymphocytes % (auto) 1.4 % (10.0-50.0); Mean Corpuscular Hemoglobin 22.9 pg (28.0-32.0); Mean Corpuscular Hgb Conc. 30.5 g/dL (32.0-36.0); Monocytes # (auto) 0.3 10 ^3/uL (0-1.3); Monocytes % (auto) 2.4 % (0.0-12.0); Neutrophils # (auto) 12.7 10 ^3/uL (1.6-8.6); Platelet Count (auto) 361 10^3/uL (140-450); Red Blood Cells 4.88 10^6/uL (4.0-5.20); White Blood Cell 13.3 10^3/uL (4.4-10.8)
[2020-03-18 21:30] LABS: Red Cell Distribution Width 20.8 % (11.8-14.3)
[2020-03-18 21:44] LABS: Albumin 3.1 g/dL (3.4-5.0); Calcium 8.9 mg/dL (8.5-10.1); Potassium 4.2 mmol/L (3.5-5.1)
[2020-03-18 21:47] LABS: BUN/Creatinine Ratio 34.9; Bilirubin, Total 0.3 mg/dL (0.2-1.0); Total Protein 7.5 g/dL (6.4-8.2)
== END 2020-03-18 23:32 | disposition left against medical advice (07) ==
LOC: ER 20:40
DX: R06.02 Shortness of breath (principal); Z53.21 Procedure and treatment not carried out due to patient leaving prior to being seen by health care provider
CPT/HCPCS: 36415; 71045; 80053; 85025

== ENCOUNTER 2021-04-23 02:58 | Emergency (ER) | payer MEDICAID ==
[~2021-04-23] VITALS: Ht 149.9 cm; Wt 49.9 kg
[~2021-04-23 02:58] MED LIST changes: -CHOL1000 PO; +CHOL1TAB30 PO
[2021-04-23] MEDS ORDERED: SODIUM BICARBONATE 8.4% INJ 50ML SYRINGE IV ONE (02:59)
[2021-04-23] MEDS ORDERED: DEXTROSE (50%) 50ML SYRG IV ONE (02:59)
[2021-04-23] MEDS ORDERED: EPINEPHrine HCL 1 MG/10 ML SYRG IV ONE (02:59)
[2021-04-23] MEDS ORDERED: CALCIUM CHLOR(10%) 100MG/ML 10ML SYRINGE IV ONE (02:59)
[2021-04-23] MEDS ORDERED: ADENOSINE 6 MG/2 ML INJ IV ONE (02:59)
[2021-04-23 03:42] VITALS: BP 168/137
== END 2021-04-23 03:34 ==
LOC: ER 02:58 → EDBD 02:58 → ER 03:34
DX: I46.9 Cardiac arrest, cause unspecified (principal); K21.9 Gastro-esophageal reflux disease without esophagitis; Z79.2 Long term (current) use of antibiotics; Z79.899 Other long term (current) drug therapy
CPT/HCPCS: 31500; 92950; 99285; J0153; J0171; J7042